=== PATIENT | female | born 1975 | race Caucasian/White ===

== ENCOUNTER 2018-12-31 10:22 | Day surgery (SDC) | payer BC ==
[2018-12-27 11:54] LABS: BASOPHIL % 0.4 % (0-2); PLATELET COUNT 316 x10^3mcL (130-400)
[2018-12-27 11:58] LABS: RED CELL DISTRIBUTION WIDTH 19.3 % (11.5-14.5)
[2018-12-27 12:01] LABS: CALCIUM 9.1 mg/dL (8.5-10.1); CARBON DIOXIDE 30.2 mmol/L (21-32); CHLORIDE SERUM 104 mmol/L (98-107); CREATININE SERUM 0.6 mg/dL (0.6-1.0); GFR1 > 60 mL/min; GLUCOSE SERUM 131 mg/dL (74-106); POTASSIUM SERUM 3.5 mmol/L (3.5-5.1); SODIUM SERUM 141 mmol/L (136-145); rbc morphology (normal/abnorm) ABNORMAL (NORMAL)
[2018-12-27 12:06] LABS: ALBUMIN 3.9 g/dL (3.4-5.0); ALKALINE PHOSPHATASE 70 U/L (46-116); ALT/SGPT 58 U/L (14-59); AST/SGOT 29 U/L (15-37); BILIRUBIN TOTAL 0.19 mg/dL (0.20-1.00); TOTAL PROTEIN, SERUM 7.6 g/dL (6.4-8.2)
[~2018-12-31] VITALS: Ht 167.6 cm; Wt 65.8 kg
[2018-12-31 10:27] VITALS: BP 136/89
[2018-12-31 17:06] VITALS: BP 126/72
== END 2018-12-31 16:45 | disposition home or self-care (01) ==
LOC: DS → LB 10:59 → DS 11:00 → LB 11:08 → DS 11:42
PROVIDERS: Surgery
DX: N64.89 Other specified disorders of breast (principal); D24.2 Benign neoplasm of left breast; D64.9 Anemia, unspecified; F32.9 Major depressive disorder, single episode, unspecified
CPT/HCPCS: 76641; 88344; J0690; J1170; J2001; J3010; J3490